=== PATIENT | female | born 1955 | race Caucasian/White ===

== ENCOUNTER 2016-11-22 16:45 | Inpatient (IN) | payer MEDICARE ==
[2016-11-22 19:49] LABS: Hematocrit 27 % (35-47); Hemoglobin 8.7 g/dl (12.0-16.0); Mean Corpuscular HGB Conc 33 g/dl (31-36); Mean Corpuscular Hemoglobin 26 pg (27-31); Mean Corpuscular Volume 79 fL (80-97); Mean Platelet Volume 7 um3 (7.4-10.4); Red Blood Count 3.39 10^6/ul (4.0-5.4); Red Cell Distribution Width 18 % (10.5-15); White Blood Count 6.2 10^3/ul (3.5-10.8)
[2016-11-22 20:04] LABS: Albumin 3.4 g/dL (3.2-5.2); Calcium 8.8 mg/dL (8.6-10.3); EGFR African American 161.9 (>60); EGFR Non-African American 125.9 (>60); Potassium 4.6 mmol/L (3.5-5.0); Total Bilirubin 0.4 mg/dL (0.2-1.0); Total Protein 7.4 g/dL (6.4-8.9)
[2016-11-22] MEDS ORDERED: Acetaminophen TAB* 325 MG PO PRN (21:05)
[2016-11-22] MEDS ORDERED: Sodium Chloride 3% HYPERTONIC* 500 ML IVPB ONE (21:07)
[2016-11-22] MEDS ORDERED: HYDROcodone/ACETAMIN 5-325 MG* 1 TAB PO PRN (21:30)
[2016-11-22] MEDS ORDERED: Bisacodyl EC TAB* 5 MG PO PRN (21:30)
[2016-11-22 22:09] LABS: TSH (Thyroid Stimulating Horm) 0.09 mcIU/mL (0.34-5.60)
--- NOTE | 2016-11-22 22:51 | ED ---
Pauline Jung Alok, scribed for Mesfin Shen MD on 11/22/16 at 1913 . Complex/Multi-Sys Presentation - HPI Summary HPI Summary: 61F sent here from [facility] with hyponatremia and open wound on left side of hip. Pt states he went to [facility] for a hip replacement when a blood blister the left side of her hip tore. Pt states she has had the blister for the past 5 months and has had them three times before. Pt states the doctor at [facility] was also concerned of a staff infection. Pt was told to come to the ED due to low sodium level of 115. - History Of Current Complaint Chief Complaint: EDGeneral Time Seen by Provider: 11/22/16 18:06 Hx Obtained From: Patient Onset/Duration: Still Present Timing: Constant Severity Currently: Moderate Severity Initially: Moderate Location: Pain At: - left hip - Allergies/Home Medications Allergies/Adverse Reactions: Allergies Allergy/AdvReac Type Severity Reaction Status Date / Time Milk Protein Extract Allergy Severe Swelling Verified 07/01/15 11:47 [From Spiriva] Of Face,Lips,& Throat Sulfa Drugs Allergy Severe Hives Verified 07/01/15 11:47 Tiotropium [From Spiriva] Allergy Severe Swelling Verified 07/01/15 11:47 Of Face,Lips,& Throat Ciprofloxacin Allergy Intermediate Rash And Verified 07/01/15 11:47 Itching Iodinated Contrast Media Allergy Mild Rash And Verified 07/01/15 11:47 [IV CONTRAST DYE] Itching Ipratropium Allergy Swelling Verified 07/01/15 11:47 [From Atrovent Inhaler] Of Face,Lips,& Throat Lecithin Allergy Swelling Verified 07/01/15 11:47 [From Atrovent Inhaler] Of Face,Lips,& Throat Cat dander Allergy Intermediate Eyes Uncoded 07/01/15 11:47 Itchy/Swollen/Red/Watery nicotine patch Allergy Intermediate Rash Uncoded 07/01/15 11:47 Pollen Allergy Intermediate Eyes Uncoded 07/01/15 11:47 Itchy/Swollen/Red/Watery PMH/Surg Hx/FS Hx/Imm Hx Endocrine/Hematology History: Reports: Hx Thyroid Disease Denies: Hx Diabetes Cardiovascular History: Reports: Hx Hypertension Denies: Hx Congestive Heart Failure, Hx Pacemaker/ICD Respiratory History: Reports: Hx Asthma, Hx Chronic Obstructive Pulmonary Disease (COPD), Hx Seasonal Allergies, Other Respiratory Problems/Disorders - COPD GI History: Reports: Hx Diverticulosis, Hx Gastroesophageal Reflux Disease, Hx Hiatal Hernia Denies: Hx Ulcer History: Denies: Hx Renal Disease Musculoskeletal History: Reports: Hx Back Problems, Hx Scoliosis, Other Musculoskeletal History - rt wrist, ankle, left femur Denies: Hx Osteoporosis Sensory History: Reports: Hx Contacts or Glasses Denies: Hx Hearing Aid Opthamlomology History: Reports: Hx Contacts or Glasses Neurological History: Reports: Hx Headaches, Other Neuro Impairments/Disorders - states neuropathy Denies: Hx Dementia, Hx Seizures Psychiatric History: Denies: Hx Panic Disorder - Surgical History Surgery Procedure, Year, and Place: Tonsillectomy adenoidectomy, right ankle fracture repair x 2, tubal ligation, diverticulitis colostomy and removal 2009, benign abdominal tumor, appendectomy,left femoral chelle 09/25 Hx Anesthesia Reactions: No Infectious Disease History: No Infectious Disease History: Denies: Hx Hepatitis, Hx Human Immunodeficiency Virus (HIV), Traveled Outside the [place] in Last 30 Days - Family History Known Family History: Negative: Cardiac Disease, Hypertension, Diabetes - Social History Alcohol Use: Rare Substance Use Type: Reports: None Smoking Status (MU): Current Every Day Smoker Type: Cigarettes Amount Used/How Often: 10 cigarettes a day Length of Time of Smoking/Using Tobacco: 40 years Have You Smoked in the Last Year: Yes Review of Systems Negative: Fever Positive: Other - hyponatremia Positive: Other - open wound left hip All Other Systems Reviewed And Are Negative: Yes Physical Exam Triage Information Reviewed: Yes Vital Signs On Initial Exam: Initial Vitals Temp Pulse Resp BP Pulse Ox 97.7 F 81 16 127/56 100 11/22/16 16:49 11/22/16 16:49 11/22/16 16:49 11/22/16 16:49 11/22/16 16:49 Vital Signs Reviewed: Yes Appearance: Positive: Well-Appearing, No Pain Distress Skin: Positive: Other - open wound leaking purulent material. no foul smell. Head/Face: Positive: Normal Head/Face Inspection Eyes: Positive: Normal ENT: Positive: Normal ENT inspection Neck: Positive: Supple, Nontender Respiratory/Lung Sounds: Positive: Clear to Auscultation, Breath Sounds Present Cardiovascular: Positive: RRR Abdomen Description: Positive: Nontender, Soft Bowel Sounds: Positive: Present Musculoskeletal: Positive: Normal Neurological: Positive: Normal Psychiatric: Positive: Normal, Affect/Mood Appropriate Procedures - Central Line Central Line Lumen: triple Central Line Procedure: betadine prep, sterile drapes applied, sterile dressing applied Central Line Position: femoral (R) - U/S guided/ first pass Anesthesia: Lidocaine cc's of anesthesia: 3 Complications: none Central Line Post Position: sutured, good blood return Diagnostics - Vital Signs Vital Signs Temp Pulse Resp BP Pulse Ox 11/22/16 16:49 97.7 F 75 16 127/56 98 - Laboratory Lab Results: Lab Results 11/22/16 11/22/16 Range/Units 19:40 19:40 WBC 6.2 (3.5-10.8) 10^3/ul RBC 3.39 L (4.0-5.4) 10^6/ul Hgb 8.7 L (12.0-16.0) g/dl Hct 27 L (35-47) % MCV 79 L (80-97) fL MCH 26 L (27-31) pg MCHC 33 (31-36) g/dl RDW 18 H (10.5-15) % Plt Count 328 (150-450) 10^3/ul MPV 7 L (7.4-10.4) um3 Neut % (Auto) 66.3 (38-83) % Lymph % (Auto) 19.4 L (25-47) % [place] % (Auto) 11.2 H (1-9) % Eos % (Auto) 1.8 (0-6) % Baso % (Auto) 1.3 (0-2) % Absolute Neuts (auto) 4.1 (1.5-7.7) 10^3/ul Absolute Lymphs (auto) 1.2 (1.0-4.8) 10^3/ul Absolute Monos (auto) 0.7 (0-0.8) 10^3/ul Absolute Eos (auto) 0.1 (0-0.6) 10^3/ul Absolute Basos (auto) 0.1 (0-0.2) 10^3/ul Absolute Nucleated RBC 0 10^3/ul Nucleated RBC % 0 Sodium 110 L* (133-145) mmol/L Potassium 4.6 (3.5-5.0) mmol/L Chloride 80 L (101-111) mmol/L Carbon Dioxide 22 (22-32) mmol/L Anion Gap 8 (2-11) mmol/L BUN 7 (6-24) mg/dL Creatinine 0.50 L (0.51-0.95) mg/dL Est GFR ( Amer) 161.9 (>60) Est GFR (Non-Af Amer) 125.9 (>60) BUN/Creatinine Ratio 14.0 (8-20) Glucose 87 (70-100) mg/dL Calcium 8.8 (8.6-10.3) mg/dL Total Bilirubin 0.40 (0.2-1.0) mg/dL AST 18 (13-39) U/L ALT 8 (7-52) U/L Alkaline Phosphatase 100 (34-104) U/L C-Reactive Protein 31.00 H (< 5.00) mg/L Total Protein 7.4 (6.4-8.9) g/dL Albumin 3.4 (3.2-5.2) g/dL Globulin 4.0 (2-4) g/dL Albumin/Globulin Ratio 0.9 L (1-3) TSH 0.09 L (0.34-5.60) mcIU/mL Result Diagrams: 11/22/16 19:40 11/22/16 19:40 Lab Statement: Any lab studies that have been ordered have been reviewed, and results considered in the medical decision making process. - EKG 1658 Cardiac Rate: NL - 77 bpm EKG Rhythm: Sinus Rhythm EKG Interpretation: low voltage Complex Multi-Symp Course/Dx Course Of Treatment: Ms. Gatica presented after having been called by [facility] and told to come in for hyponatremia. She was found to have a sodium of [address] Peters saw her and recommended a central line for hypernatremic solution administration. - Diagnoses Provider Diagnoses: Acute hyponatremia - Physician Notifications Discussed Care Of Patient With: Dr. Peters (Hospitalist) @ 2049 - Will admit pt - Critical Care Time Critical Care Time: 30-74 min Discharge - Discharge Plan Condition: Stable Disposition: ADMITTED TO [facility] documentation as recorded by the Pauline pineda Alok accurately reflects the service I personally performed and the decisions made by me, Mesfin Shen MD.
[2016-11-22] MEDS: Albuterol 2.5 MG/3 ML NEB.SOL* (0.083%) INH PRN (23:06)
--- NOTE | 2016-11-23 | HP ---
HISTORY AND PHYSICAL: DATE OF ADMISSION: 11/22/16 CHIEF COMPLAINT: "My labs are off." HISTORY OF PRESENT ILLNESS: The patient is a 61-year-old woman who apparently had labs drawn at [facility] for surgery she is supposed to have next week and was told to come to the ER immediately because her sodium was low. She was told it was 115. Here when it is drawn, it is 110. The patient has had a history of low sodium in the past, but usually around 125. The patient has no complaints. She denies any headaches or lightheadedness. No seizure-like activity. She says she is compliant with all her medications including her Synthroid. She says she does drink about 1.5 L of water a day, but that is it. She does not drink alcohol much anymore. She admits she used to abuse alcohol , but that has been for years. PAST MEDICAL HISTORY: Significant for hypothyroidism, COPD, GERD, depression, chronic osteomyelitis. 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 MEDICATIONS: Her current medications are as follows: 1. Albuterol inhaler 2 puffs every 4 hours as needed. 2. Albuterol nebulizer every 4 hours as needed. 3. Lactulose 15 cc 4 times a day. 4. [place] 5/325 every 6 hours as needed. 5. Fluticasone 1 spray nasal daily. 6. Bisacodyl 5 mg daily as needed. 7. Levothyroxine 125 mcg daily. 8. Lansoprazole 30 mg daily. 9. Bupropion 150 mg daily. 10. Singulair 10 mg daily. 11. Dulera 100/5 two puffs twice daily. 12. Lisinopril 10 mg daily. ALLERGIES: She has allergies/adverse reactions to the following medications: MILK, SULFA DRUGS, SPIRIVA, CIPRO, IV CONTRASTS, IPRATROPIUM, LECITHIN, CAT DANDER, NICOTINE PATCH, and POLLEN. FAMILY HISTORY: Mother at age 60 of lung cancer. Father in the 70s of emphysema. SOCIAL HISTORY: Smokes 5 cigarettes a week, used to smoke 2 packs a day for 40 years. Rare alcohol, used to alcohol abuse years ago. No recreational drug use. She is on disability for her back. She is . Estranged from her daughter. She has 2 children. Her son, Fidel Gatica, is her healthcare proxy. REVIEW OF SYSTEMS: A 14-point review of systems was completed with the patient , all pertinent positive and negatives are in the history of present illness, otherwise it is negative. PHYSICAL EXAMINATION GENERAL: Pleasant woman, lying in bed, in no acute distress. VITAL SIGNS: Temperature 98 degrees, heart rate 80 beats per minute, respiratory rate 18 breaths per minute, pulse ox 97%, blood pressure 127/55. HEENT: Normocephalic, atraumatic. Pupils equal, round, reactive to light. Moist mucous membranes. NECK: Supple. No JVD, bruits, palpable thyroid, or lymphadenopathy. LUNGS: Chest is clear to auscultation and percussion bilaterally. CARDIOVASCULAR: S1 and S2 appreciated. ABDOMEN: Positive bowel sounds in all 4 quadrants. Soft, nontender, nondistended. EXTREMITIES: No cyanosis or clubbing. +2 peripheral pulses bilaterally. NEUROLOGIC: Alert and oriented x3, moves all extremities. SKIN: No rashes or abnormalities. LABORATORY DATA: Sodium is 110, potassium 4.6, chloride 80, CO2 22, BUN 7, creatinine 0.50, glucose is 87. WBC 6.2, hemoglobin 8.7, hematocrit 27, platelets are 328. EKG shows normal sinus rhythm at 77 beats per minute, normal axis, no acute ST- T wave changes. ASSESSMENT AND PLAN: 1. Severe hyponatremia. At this point, it is unclear as to the etiology. I will check a TSH for hypothyroidism, but she seems to also be euvolemic. I do not think it is from ascites from her past alcohol abuse. 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 I will fluid restrict her to 500 cc and because she is so severely hyponatremic, I will put her on 30 cc an hour of hypertonic saline until I can get her sodium up to over 120. Obviously, I will do slowly. I will put her in the ICU for observation with neurological checks q.4 hours. There is also a possibility that hyponatremia could be from lactulose from the lactulose and we will consider this as a potential cause. 2. Hypothyroidism. As above. Check TSH. Continue Synthroid. 3. Gastroesophageal reflux disease, stable, no symptoms, continue PPI. 4. Chronic obstructive pulmonary disease, stable. Continue current treatment. 5. Osteomyelitis. The patient is supposed to go in to have her hip replacement next week at [facility] with IV antibiotics over 6 weeks. We will monitor, but no treatment due for now. 6. FEN: Regular diet with 500 cc fluid restriction. 7. DVT prophylaxis. Heparin subcu. 8. The patient is a full code. TIME SPENT: Over 75 minutes were spent on this H and P, more than 40 minutes of which was spent in direct [id number] contact with the patient in evaluation , physical exam, counseling, and coordination of care. CC: Dr. Micah Sue* [id number]/CPS #: [id number] SHAY
[2016-11-23] MEDS: Heparin VIAL(*) 5000 UNITS/ML VIAL (FIVE THOUSAND) SUBCUT SCH ×4 (01:00→23:08)
[2016-11-23 01:53] LABS: BUN/Creatinine Ratio 15.8 (8-20); Calcium 8.1 mg/dL (8.6-10.3); EGFR African American 139.1 (>60); EGFR Non-African American 108.2 (>60); Potassium 4.4 mmol/L (3.5-5.0)
[2016-11-23] MEDS ORDERED: Sodium Chloride 3% HYPERTONIC* 500 ML IVPB ONE (02:28)
[2016-11-23] MEDS: Albuterol 2.5 MG/3 ML NEB.SOL* (0.083%) INH PRN (05:18)
[2016-11-23] MEDS: Levothyroxine TAB* 125 MCG TAB PO SCH (05:37)
[2016-11-23 06:05] LABS: BUN/Creatinine Ratio 16.3 (8-20); Calcium 8.5 mg/dL (8.6-10.3); EGFR African American 165.7 (>60); EGFR Non-African American 128.8 (>60); Potassium 4.4 mmol/L (3.5-5.0)
--- NOTE | 2016-11-23 08:19 | PN ---
Subjective Date of Service: 11/23/16 Interval History: Has no systemic complains Upset that she is in the hospital. Upset that she keeps getting woken up Denies BAKER, visual changes, nausea, SOB, CP, LH Objective Active Medications: Acetaminophen (Tylenol Tab*) 650 mg PO Q4H PRN PRN Reason: FEVER/PAIN Hydrocodone Bitart/Acetaminophen ([place] 5-325 Tab*) 1 tab PO Q6H PRN PRN Reason: PAIN Albuterol (Ventolin 2.5 Mg/3 Ml Neb.Carlita*) 2.5 mg INH Q4H PRN PRN Reason: WHEEZING Last Admin: 11/23/16 05:18 Dose: 2.5 mg Albuterol (Ventolin Hfa Inhaler*) 2 puff INH Q4H PRN PRN Reason: WHEEZING Bisacodyl (Dulcolax Ec Tab*) 5 mg PO DAILY PRN PRN Reason: CONSTIPATION Bupropion HCl (Wellbutrin Sr Tab*) 150 mg PO DAILY [facility] Fluticasone Propionate (Flonase Nasal [place] 50mcg*) 1 spray NASAL DAILY [facility] Heparin Sodium (Porcine) (Heparin Vial(*)) 5,000 units SUBCUT Q8HR [facility] Last Admin: 11/23/16 06:47 Dose: 5,000 units Levothyroxine Sodium (Synthroid Tab*) 125 mcg PO DAILY@0600 [facility] Last Admin: 11/23/16 05:37 Dose: 125 mcg Lisinopril (Prinivil Tab*) 10 mg PO DAILY [facility] Mometasone Furoate/Formoterol Fumar (Dulera 100/5 Mdi*) 2 puff INH BID [facility] Montelukast Sodium (Singulair Tab*) 10 mg PO BEDTIME [facility] Omeprazole (Prilosec Cap*) 20 mg PO DAILY@0730 [facility] PRN Reason: Protocol Vital Signs 11/22/16 11/22/16 11/22/16 22:24 22:25 22:30 Temperature Pulse Rate 95 94 Respiratory Rate Blood Pressure 69/50 128/65 (mmHg) O2 Sat by Pulse 93 94 Oximetry 11/22/16 11/22/16 11/22/16 22:33 22:49 22:50 Temperature 98.2 F Pulse Rate 91 99 Respiratory 20 Rate Blood Pressure 144/59 144/59 (mmHg) O2 Sat by Pulse 93 93 Oximetry 11/22/16 11/22/16 11/22/16 23:00 23:07 23:15 Temperature Pulse Rate 85 85 Respiratory 23 15 21 Rate Blood Pressure 123/90 (mmHg) O2 Sat by Pulse 98 100 Oximetry 11/22/16 11/23/16 11/23/16 23:22 00:00 00:01 Temperature 99.4 F Pulse Rate 93 88 87 Respiratory 20 20 19 Rate Blood Pressure 138/67 (mmHg) O2 Sat by Pulse 95 93 94 Oximetry 11/23/16 11/23/16 11/23/16 01:00 02:00 03:00 Temperature Pulse Rate 86 83 85 Respiratory 24 21 20 Rate Blood Pressure 139/95 145/73 132/59 (mmHg) O2 Sat by Pulse 92 94 92 Oximetry 11/23/16 11/23/16 11/23/16 04:00 04:02 05:00 Temperature 97.6 F Pulse Rate 85 Respiratory 25 21 21 Rate Blood Pressure 167/72 (mmHg) O2 Sat by Pulse 92 Oximetry 11/23/16 11/23/16 11/23/16 05:19 06:00 06:03 Temperature Pulse Rate 86 Respiratory 16 21 21 Rate Blood Pressure 153/56 (mmHg) O2 Sat by Pulse 95 Oximetry 11/23/16 07:59 Temperature 98.4 F Pulse Rate Respiratory Rate Blood Pressure (mmHg) O2 Sat by Pulse Oximetry Oxygen Devices in Use Now: Nasal Cannula Appearance: lying 35 deg in bed, NAD Eyes: No Scleral Icterus, PERRLA Ears/Nose/Mouth/Throat: Clear Oropharnyx, Mucous Membranes Moist Neck: NL Appearance and Movements; NL JVP, Trachea Midline Respiratory: Symmetrical Chest Expansion and Respiratory Effort, - - decreased throughout Cardiovascular: NL Sounds; No Murmurs; No JVD, RRR Abdominal: - - soft, ND, mild TTP, +bs, palpable hernia Extremities: No Edema Skin: - - 1mm draining wound on left hip Neurological: Alert and Oriented x 3 Lines/Tubes/Other Access: Clean, Dry and Intact Central Line - right femoral CVC Result Diagrams: 11/22/16 19:40 11/23/16 05:35 Additional Lab and Data: Lab Results 11/22/16 11/22/16 Range/Units 19:40 19:40 WBC 6.2 (3.5-10.8) 10^3/ul RBC 3.39 L (4.0-5.4) 10^6/ul Hgb 8.7 L (12.0-16.0) g/dl Hct 27 L (35-47) % MCV 79 L (80-97) fL MCH 26 L (27-31) pg MCHC 33 (31-36) g/dl RDW 18 H (10.5-15) % Plt Count 328 (150-450) 10^3/ul MPV 7 L (7.4-10.4) um3 Neut % (Auto) 66.3 (38-83) % Lymph % (Auto) 19.4 L (25-47) % [place] % (Auto) 11.2 H (1-9) % Eos % (Auto) 1.8 (0-6) % Baso % (Auto) 1.3 (0-2) % Absolute Neuts (auto) 4.1 (1.5-7.7) 10^3/ul Absolute Lymphs (auto) 1.2 (1.0-4.8) 10^3/ul Absolute Monos (auto) 0.7 (0-0.8) 10^3/ul Absolute Eos (auto) 0.1 (0-0.6) 10^3/ul Absolute Basos (auto) 0.1 (0-0.2) 10^3/ul Absolute Nucleated RBC 0 10^3/ul Nucleated RBC % 0 Sodium 110 L* (133-145) mmol/L Potassium 4.6 (3.5-5.0) mmol/L Chloride 80 L (101-111) mmol/L Carbon Dioxide 22 (22-32) mmol/L Anion Gap 8 (2-11) mmol/L BUN 7 (6-24) mg/dL Creatinine 0.50 L (0.51-0.95) mg/dL Est GFR ( Amer) 161.9 (>60) Est GFR (Non-Af Amer) 125.9 (>60) BUN/Creatinine Ratio 14.0 (8-20) Glucose 87 (70-100) mg/dL Calcium 8.8 (8.6-10.3) mg/dL Total Bilirubin 0.40 (0.2-1.0) mg/dL AST 18 (13-39) U/L ALT 8 (7-52) U/L Alkaline Phosphatase 100 (34-104) U/L C-Reactive Protein 31.00 H (< 5.00) mg/L Total Protein 7.4 (6.4-8.9) g/dL Albumin 3.4 (3.2-5.2) g/dL Globulin 4.0 (2-4) g/dL Albumin/Globulin Ratio 0.9 L (1-3) TSH 0.09 L (0.34-5.60) mcIU/mL Assess/Plan/Problems-Billing Assessment: 61 yo F h/o COPD, hyponatremia, depression, chronic osteomyelitis with plan for left hip replacement and hardware removal next week at [facility] presented with sodium of 110 discovered during preadmission testing for hip surgery - Patient Problems (1) Hyponatremia Comment: Hypertonic saline stopped at 530 AM repeat BMP now and then again based on this result Unclear etiology. TSH suggests hyperthyroidism Pt reports adequate diet including solutes and free water but she may be underreporting consumption of food (tea and toast diet). SIADH definite possibility in setting of chronic osteo. Anemia and tobacco history raise question of underlying malignancy (2) Hyperthyroidism Comment: TSH low free T4 and free T3 pending continue current synthroid until results return (3) COPD (chronic obstructive pulmonary disease) Comment: On home oxygen c/w singulair, dulera, albuterol, flonase (4) Osteomyelitis Comment: chronic planned for surgery next week at [facility] if cleared here (5) Anemia Comment: suspectr in setting of chronic dz add on iron studies (6) DVT prophylaxis Comment: HSQ
[2016-11-23 08:20] LABS: Free T4 1.48 ng/dL (0.61-1.12)
[2016-11-23 08:26] LABS: BUN/Creatinine Ratio 15.4 (8-20); Calcium 8.9 mg/dL (8.6-10.3); EGFR African American 154.7 (>60); EGFR Non-African American 120.3 (>60); Potassium 4.3 mmol/L (3.5-5.0)
[2016-11-23] MEDS ORDERED: Budesonide/Formote 160/4.5(NF) MDI INH SCH (09:00)
[2016-11-23] MEDS: D5W 250 ML BAG* 250 ML IV SCH (09:09)
[2016-11-23] MEDS: Omeprazole CAP* 20 MG PO SCH (09:13)
[2016-11-23] MEDS: Mometasone/Formoter 100/5 MDI INH SCH ×2 (09:14→20:26)
[2016-11-23] MEDS: buPROPion SR TAB.SR* 150 MG PO SCH (09:14)
[2016-11-23] MEDS: Lisinopril TAB* 10 MG PO SCH (09:14)
[2016-11-23] MEDS: Fluticasone NASAL SPRAY 50MCG* 16 gm SPRAY BTL NASAL SCH (09:14)
[2016-11-23 09:21] LABS: Ferritin 21.8 ng/mL (11-307)
[2016-11-23 12:23] LABS: Calcium 8.9 mg/dL (8.6-10.3); EGFR African American 148.1 (>60); EGFR Non-African American 115.2 (>60); Potassium 4.4 mmol/L (3.5-5.0)
[2016-11-23] MEDS: Albuterol HFA INHALER* 8 gm MDI INH PRN ×2 (13:35→17:46)
[2016-11-23 18:40] LABS: BUN/Creatinine Ratio 12.2 (8-20); Calcium 8.6 mg/dL (8.6-10.3); EGFR African American 165.7 (>60); EGFR Non-African American 128.8 (>60); Potassium 4.4 mmol/L (3.5-5.0)
[2016-11-23] MEDS: oxyCODONE/Acetamin 5/325 MG* TAB PO PRN (18:40)
[2016-11-23] MEDS: Montelukast Sodium TAB* 10 MG PO SCH (20:25)
[2016-11-24] MEDS: tiZANidine TAB* 2 MG PO SCH ×4 (00:58→20:31)
[2016-11-24] MEDS: oxyCODONE/Acetamin 5/325 MG* TAB PO PRN ×5 (01:02→22:36)
[2016-11-24] MEDS: Albuterol HFA INHALER* 8 gm MDI INH PRN ×4 (01:02→20:17)
[2016-11-24] MEDS: Levothyroxine TAB* 125 MCG TAB PO SCH (05:20)
[2016-11-24] MEDS: Heparin VIAL(*) 5000 UNITS/ML VIAL (FIVE THOUSAND) SUBCUT SCH ×3 (05:21→22:36)
[2016-11-24 05:35] LABS: Hematocrit 26 % (35-47); Hemoglobin 8.3 g/dl (12.0-16.0); Mean Corpuscular HGB Conc 32 g/dl (31-36); Mean Corpuscular Hemoglobin 26 pg (27-31); Mean Corpuscular Volume 79 fL (80-97); Mean Platelet Volume 7 um3 (7.4-10.4); Red Blood Count 3.26 10^6/ul (4.0-5.4); Red Cell Distribution Width 18 % (10.5-15); White Blood Count 5.5 10^3/ul (3.5-10.8)
[2016-11-24 05:45] LABS: BUN/Creatinine Ratio 14.6 (8-20); Calcium 8.8 mg/dL (8.6-10.3); EGFR African American 169.7 (>60); EGFR Non-African American 131.9 (>60); Potassium 4.3 mmol/L (3.5-5.0)
[2016-11-24] MEDS: Omeprazole CAP* 20 MG PO SCH (08:09)
[2016-11-24] MEDS: Lisinopril TAB* 10 MG PO SCH (08:09)
[2016-11-24] MEDS: buPROPion SR TAB.SR* 150 MG PO SCH (08:09)
[2016-11-24] MEDS: Fluticasone NASAL SPRAY 50MCG* 16 gm SPRAY BTL NASAL SCH (08:10)
[2016-11-24] MEDS: Mometasone/Formoter 100/5 MDI INH SCH ×2 (08:10→20:08)
--- NOTE | 2016-11-24 13:19 | PN ---
Subjective Date of Service: 11/24/16 Interval History: Poor sleep overnight. Left hip draining "like it always does" No other complaints She thinks that she usually drinks more liquid than the 1000cc she received yesterday Objective Active Medications: Acetaminophen (Tylenol Tab*) 650 mg PO Q4H PRN PRN Reason: FEVER/PAIN Albuterol (Ventolin Hfa Inhaler*) 2 puff INH Q4H PRN PRN Reason: WHEEZING Last Admin: 11/24/16 10:08 Dose: 2 puff Bisacodyl (Dulcolax Ec Tab*) 5 mg PO DAILY PRN PRN Reason: CONSTIPATION Bupropion HCl (Wellbutrin Sr Tab*) 150 mg PO DAILY [facility] Last Admin: 11/24/16 08:09 Dose: 150 mg Fluticasone Propionate (Flonase Nasal [place] 50mcg*) 1 spray NASAL DAILY [facility] Last Admin: 11/24/16 08:10 Dose: 1 spray Heparin Sodium (Porcine) (Heparin Vial(*)) 5,000 units SUBCUT Q8HR [facility] Last Admin: 11/24/16 13:07 Dose: 5,000 units Heparin Sodium (Porcine) (Heparin Flush Picc/Ml/Cvc(*)) 0 ml IV FLUSH 0600, 1800 [facility] PRN Reason: Protocol Dextrose (D5w 250 Ml Bag*) 250 mls @ 0 mls/hr IV WIDE OPEN TJ PRN Reason: Wide Open Last Admin: 11/23/16 09:09 Dose: 250 mls/hr Levothyroxine Sodium (Synthroid Tab*) 75 mcg PO DAILY@0600 TJ Lisinopril (Prinivil Tab*) 10 mg PO DAILY [facility] Last Admin: 11/24/16 08:09 Dose: 10 mg Mometasone Furoate/Formoterol Fumar (Dulera 100/5 Mdi*) 2 puff INH BID [facility] Last Admin: 11/24/16 08:10 Dose: 2 puff Montelukast Sodium (Singulair Tab*) 10 mg PO BEDTIME [facility] Last Admin: 11/23/16 20:25 Dose: 10 mg Omeprazole (Prilosec Cap*) 20 mg PO DAILY@0730 [facility] PRN Reason: Protocol Last Admin: 11/24/16 08:09 Dose: 20 mg Oxycodone/Acetaminophen (Percocet 5/325 Tab*) 2 tab PO Q4H PRN PRN Reason: PAIN Last Admin: 11/24/16 13:05 Dose: 2 tab Tizanidine HCl (Zanaflex Tab*) 4 mg PO TID TJ Last Admin: 11/24/16 13:06 Dose: 4 mg Vital Signs 11/23/16 11/23/16 11/23/16 14:00 15:17 18:40 Temperature 97.7 F Pulse Rate 93 Respiratory 26 16 19 Rate Blood Pressure 149/36 (mmHg) O2 Sat by Pulse 95 96 Oximetry 11/23/16 11/23/16 11/23/16 19:19 20:00 20:26 Temperature 97.8 F Pulse Rate 90 86 Respiratory 16 18 16 Rate Blood Pressure 129/58 (mmHg) O2 Sat by Pulse 97 96 Oximetry 11/23/16 11/23/16 11/24/16 20:27 23:13 01:02 Temperature 98.2 F Pulse Rate 86 Respiratory 18 18 16 Rate Blood Pressure 131/60 (mmHg) O2 Sat by Pulse 98 Oximetry 11/24/16 11/24/16 11/24/16 03:02 04:23 05:20 Temperature 97.4 F Pulse Rate 79 Respiratory 16 16 16 Rate Blood Pressure 116/56 (mmHg) O2 Sat by Pulse 96 Oximetry 11/24/16 11/24/16 11/24/16 07:07 07:20 08:00 Temperature 97.7 F Pulse Rate 77 Respiratory 16 16 18 Rate Blood Pressure 124/53 (mmHg) O2 Sat by Pulse 96 Oximetry 11/24/16 11/24/16 10:25 13:05 Temperature Pulse Rate Respiratory 16 Rate Blood Pressure (mmHg) O2 Sat by Pulse 98 Oximetry Oxygen Devices in Use Now: Nasal Cannula Appearance: NAD Eyes: No Scleral Icterus, PERRLA Ears/Nose/Mouth/Throat: NL Teeth, Lips, Gums, Clear Oropharnyx, Mucous Membranes Moist Neck: NL Appearance and Movements; NL JVP, Trachea Midline Respiratory: Symmetrical Chest Expansion and Respiratory Effort, Clear to Auscultation Cardiovascular: RRR Abdominal: NL Sounds; No Tenderness; No Distention, No Hepatosplenomegaly Skin: - - small draining tract on left hip Neurological: Alert and Oriented x 3 Result Diagrams: 11/24/16 05:20 11/24/16 05:20 Additional Lab and Data: Lab Results 11/22/16 11/22/16 Range/Units 19:40 19:40 WBC 6.2 (3.5-10.8) 10^3/ul RBC 3.39 L (4.0-5.4) 10^6/ul Hgb 8.7 L (12.0-16.0) g/dl Hct 27 L (35-47) % MCV 79 L (80-97) fL MCH 26 L (27-31) pg MCHC 33 (31-36) g/dl RDW 18 H (10.5-15) % Plt Count 328 (150-450) 10^3/ul MPV 7 L (7.4-10.4) um3 Neut % (Auto) 66.3 (38-83) % Lymph % (Auto) 19.4 L (25-47) % [place] % (Auto) 11.2 H (1-9) % Eos % (Auto) 1.8 (0-6) % Baso % (Auto) 1.3 (0-2) % Absolute Neuts (auto) 4.1 (1.5-7.7) 10^3/ul Absolute Lymphs (auto) 1.2 (1.0-4.8) 10^3/ul Absolute Monos (auto) 0.7 (0-0.8) 10^3/ul Absolute Eos (auto) 0.1 (0-0.6) 10^3/ul Absolute Basos (auto) 0.1 (0-0.2) 10^3/ul Absolute Nucleated RBC 0 10^3/ul Nucleated RBC % 0 Sodium 110 L* (133-145) mmol/L Potassium 4.6 (3.5-5.0) mmol/L Chloride 80 L (101-111) mmol/L Carbon Dioxide 22 (22-32) mmol/L Anion Gap 8 (2-11) mmol/L BUN 7 (6-24) mg/dL Creatinine 0.50 L (0.51-0.95) mg/dL Est GFR ( Amer) 161.9 (>60) Est GFR (Non-Af Amer) 125.9 (>60) BUN/Creatinine Ratio 14.0 (8-20) Glucose 87 (70-100) mg/dL Calcium 8.8 (8.6-10.3) mg/dL Total Bilirubin 0.40 (0.2-1.0) mg/dL AST 18 (13-39) U/L ALT 8 (7-52) U/L Alkaline Phosphatase 100 (34-104) U/L C-Reactive Protein 31.00 H (< 5.00) mg/L Total Protein 7.4 (6.4-8.9) g/dL Albumin 3.4 (3.2-5.2) g/dL Globulin 4.0 (2-4) g/dL Albumin/Globulin Ratio 0.9 L (1-3) TSH 0.09 L (0.34-5.60) mcIU/mL Microbiology and Other Data: Microbiology 11/23/16 06:00 Nasal Screen MRSA (PCR)(DAWNA) - Final Nasal Mrsa Negative Assess/Plan/Problems-Billing Assessment: 61 yo F h/o COPD, hyponatremia, depression, chronic osteomyelitis with plan for left hip replacement and hardware removal next week at [facility] presented with sodium of 110 discovered during preadmission testing for hip surgery - Patient Problems (1) Hyponatremia Comment: Hypertonic saline stopped at 530 AM 11/23/16 Received free water to slow sodium rise yesterday Free water restrict to 1000cc today and reevaluate tomorrow Pt reports adequate diet including solutes and free water but she may be underreporting consumption of food (tea and toast diet). SIADH definite possibility in setting of chronic osteo. Anemia and tobacco history raise question of underlying malignancy (2) Hyperthyroidism Comment: Decrease synthroid from 125 to 75mch daily will need repeat in 4-6 weeks (3) COPD (chronic obstructive pulmonary disease) Comment: On home oxygen c/w singulair, dulera, albuterol, flonase (4) Osteomyelitis Comment: chronic planned for surgery next week at [facility] if cleared here (5) Anemia Comment: suspect in setting of chronic dz iron studies c/w iron def anemia Iron start BID (6) DVT prophylaxis Comment: HSQ
[2016-11-24] MEDS: Montelukast Sodium TAB* 10 MG PO SCH (20:32)
[2016-11-24] MEDS: Ferrous Sulfate TAB* 325 MG PO SCH (20:32)
[2016-11-25] MEDS: Albuterol HFA INHALER* 8 gm MDI INH PRN ×2 (02:08→05:58)
[2016-11-25] MEDS ORDERED: Nicotine Inhaler* 10 MG AMP INH PRN (03:04)
[2016-11-25] MEDS ORDERED: Mouth Piece, Nicotine* 1 EACH CARTRIDGE ONE (03:10)
[2016-11-25] MEDS ORDERED: Nicotine Inhaler* 10 MG AMP ONE (03:11)
[2016-11-25] MEDS: oxyCODONE/Acetamin 5/325 MG* TAB PO PRN ×3 (03:13→14:49)
[2016-11-25] MEDS: Heparin VIAL(*) 5000 UNITS/ML VIAL (FIVE THOUSAND) SUBCUT SCH ×2 (05:23→14:42)
[2016-11-25] MEDS ORDERED: Levothyroxine TAB* 75 MCG TAB PO SCH (06:00)
[2016-11-25 06:08] LABS: Calcium 8.5 mg/dL (8.6-10.3); EGFR African American 139.1 (>60); EGFR Non-African American 108.2 (>60); Potassium 4.1 mmol/L (3.5-5.0)
[2016-11-25] MEDS ORDERED: NS 0.9% 1000 ML* 1,000 ML IV ONE (07:30)
[2016-11-25] MEDS: buPROPion SR TAB.SR* 150 MG PO SCH (08:14)
[2016-11-25] MEDS: Lisinopril TAB* 10 MG PO SCH (08:14)
[2016-11-25] MEDS: Ferrous Sulfate TAB* 325 MG PO SCH (08:14)
[2016-11-25] MEDS: tiZANidine TAB* 2 MG PO SCH ×2 (08:14→14:49)
[2016-11-25] MEDS: Fluticasone NASAL SPRAY 50MCG* 16 gm SPRAY BTL NASAL SCH (08:15)
[2016-11-25] MEDS: Omeprazole CAP* 20 MG PO SCH (08:15)
[2016-11-25 08:16] VITALS: BP 113/51
[2016-11-25] MEDS: Mometasone/Formoter 100/5 MDI INH SCH (10:09)
[2016-11-25 12:29] LABS: BUN/Creatinine Ratio 12.1 (8-20); Calcium 8.2 mg/dL (8.6-10.3); EGFR African American 136.4 (>60); Potassium 4.1 mmol/L (3.5-5.0)
[2016-11-25] MEDS ORDERED: NS 0.9% 1000 ML* 500 ML IV SCH (14:00)
[2016-11-25] MEDS: D5W 250 ML BAG* 250 ML IV SCH (14:51)
--- NOTE | 2016-11-26 02:49 | DS ---
DISCHARGE SUMMARY: DATE OF ADMISSION: 11/22/16 DATE OF DISCHARGE: 11/25/16 PRIMARY CARE PROVIDER: Micah Sue MD PRIMARY DIAGNOSES: 1. Hyponatremia. 2. Hyperthyroidism. SECONDARY DIAGNOSES: 1. Chronic obstructive pulmonary disease. 2. Chronic osteomyelitis. 3. Anemia combination chronic secondary to inflammation and iron deficiency anemia. 4. Depression. 5. Hypertension. PERTINENT LABORATORY DATA: Sodium on presentation 110, sodium on discharge 124 , TSH 0.09, free T4 1.48, free T3 3.00. Serum osmolality 243, urine osmolality 98, urine sodium less than 18, iron 21, TIBC 357, percent saturation 6, ferritin 21. MEDICATIONS ON DISCHARGE: 1. Tizanidine 4 mg 3 times a day as needed 2. Lisinopril 20 mg daily. 3. Albuterol HFA 2 puffs inhaler every 4 hours as needed. 4. Albuterol nebulizer every 4 hours as needed. 5. Lactulose 15 mL 4 times a day. 6. Hydrocodone/acetaminophen 5/325 mg 1 tab every 6 hours as needed for pain. 7. Fluticasone 1 spray nasally daily. 8. Bisacodyl EC 5 mg daily as needed. 9. Prevacid 30 mg daily. 10. Bupropion SR 150 mg daily. 11. Montelukast 10 mg daily. 12. Dulera 100/5 two puffs twice daily. 13. Synthroid 75 mcg daily. Please note decrease from 125 mcg daily. 14. Ferrous sulfate 325 mg twice daily. HISTORY OF PRESENT ILLNESS AND HOSPITAL COURSE: This is a 61-year-old female with past medical history as outlined in the history of present illness on the day of admission including history of hyponatremia; however, never this severe, chronic osteomyelitis with plan for surgery 3 days from today at [facility], who has been in her usual state of health, had preadmission testings, referred to the emergency room after sodium returned at 115. Sodium on presentation here was 110. The patient was asymptomatic. She had right a femoral central line placed, was admitted to the ICU and received hypertonic saline overnight. Her sodium marizol rapidly from 110 to 122 in approximately 7-1/ 2 hours. She received small amount of free water until her sodium stabilized, returned to 123. She was maintained on a volume restricted diet and her sodium continued to decline at 1 mL per liter daily. Ultimately, her urine sodium and osmolality results returned more indicative of hypovolemic state. She was given a liter of normal saline on the day of discharge with improvement of her serum sodium from 121 to 124 indicating hypovolemic hyponatremia. She received additional 500 cc of fluid prior to her discharge. Her serum sodium or BMP should be followed upon discharge. Additionally, her TSH was noted to be low with an elevated free T4 indicating hyperthyroidism. Her levothyroxine was titrated down. Additionally, for her anemia, iron tests were checked, notable for a low iron, low percent sat, and a borderline low ferritin 21.8. It appears to this author that the ferritin is likely falsely elevated as acute phase reactant in the setting of her chronic osteomyelitis, also indicated by elevated CRP of 31 and suspects these labs truly represent iron deficiency anemia likely in conjunction with anemia of chronic illness. At followup, please; 1. Follow up sodium levels as needed. 2. The patient will need followup thyroid studies in 4 to 6 weeks. 3. The patient will need followup iron studies in several months to evaluate for improvement. Reasons to return to the hospital including, but not limited to recurrent or worsening symptoms including headaches, changes in vision, lightheadedness, loss of consciousness, near loss of consciousness, seizure-like activity, nausea , vomiting, fever, chills or night sweats, bleeding from any source discussed with the patient, she acknowledged understanding. She was advised to increase her fluid intake, which she does not describe as low during the course of the hospital stay. She acknowledged understanding. TIME SPENT: Greater than 60 minutes were spent on discharge of this patient, greater than half was spent [id number] with the patient. [id number]/[facility] #: [id number] [place]
== END 2016-11-25 16:10 | disposition home or self-care (01) | DRG 641 ==
LOC: ED 16:45 → ICU 21:07 → MED 11-23 15:11
PROVIDERS: ADMIT Internal Medicine; ATTEND Internal Medicine
PROC: 06HM33Z Insertion of Infusion Device into Right Femoral Vein, Percutaneous Approach (ICD-10-PCS; principal; 2016-11-22)
PROC: B54BZZA Ultrasonography of Right Lower Extremity Veins, Guidance (ICD-10-PCS; 2016-11-22)
DX: E87.1 Hypo-osmolality and hyponatremia (principal); E86.1 Hypovolemia; M86.60 Other chronic osteomyelitis, unspecified site; M86.68 Other chronic osteomyelitis, other site; M41.9 Scoliosis, unspecified; G62.9 Polyneuropathy, unspecified; J45.909 Unspecified asthma, uncomplicated; F17.210 Nicotine dependence, cigarettes, uncomplicated; K21.9 Gastro-esophageal reflux disease without esophagitis; F32.9 Major depressive disorder, single episode, unspecified; E05.90 Thyrotoxicosis, unspecified without thyrotoxic crisis or storm; D50.9 Iron deficiency anemia, unspecified; D53.9 Nutritional anemia, unspecified; I10 Essential (primary) hypertension; D63.8 Anemia in other chronic diseases classified elsewhere; Z96.649 Presence of unspecified artificial hip joint; Z99.81 Dependence on supplemental oxygen; Z88.2 Allergy status to sulfonamides; Z88.1 Allergy status to other antibiotic agents; Z88.8 Allergy status to other drugs, medicaments and biological substances; Z91.041 Radiographic dye allergy status; Z91.048 Other nonmedicinal substance allergy status; Z91.011 Allergy to milk products; Z98.51 Tubal ligation status; Z80.1 Family history of malignant neoplasm of trachea, bronchus and lung; Z82.5 Family history of asthma and other chronic lower respiratory diseases
CPT/HCPCS: 36415; 80048; 80053; 82728; 83540; 83550; 83930; 83935; 84300; 84439; 84443; 84481; 85025; 86140; 87641; 93005; 94640; 94760; A9270-GY; J1644

== ENCOUNTER 2016-12-23 19:04 | Emergency (ER) | payer MEDICARE ==
[2016-12-23] MEDS ORDERED: NS 0.9% 1000 ML* 1,000 ML IV ONE (19:43)
[2016-12-23 20:14] LABS: Hematocrit 24 % (35-47); Hemoglobin 7.8 g/dl (12.0-16.0); Mean Corpuscular HGB Conc 32 g/dl (31-36); Mean Corpuscular Hemoglobin 28 pg (27-31); Mean Corpuscular Volume 86 fL (80-97); Mean Platelet Volume 8 um3 (7.4-10.4); Red Blood Count 2.82 10^6/ul (4.0-5.4); Red Cell Distribution Width 17 % (10.5-15); White Blood Count 7.3 10^3/ul (3.5-10.8)
[2016-12-23 20:32] LABS: ALT 3 U/L (7-52); AST 17 U/L (13-39); Albumin 2.9 g/dL (3.2-5.2); Alkaline Phosphatase 78 U/L (34-104); Anion Gap 8 mmol/L (2-11); BUN/Creatinine Ratio 12.5 (8-20); Blood Urea Nitrogen 6 mg/dL (6-24); C Reactive Protein 58.35 mg/L (< 5.00); CO2 Carbon Dioxide 24 mmol/L (22-32); Calcium 8.6 mg/dL (8.6-10.3); Chloride 96 mmol/L (101-111); Creatine Kinase 69 U/L (10-223); EGFR African American 169.7 (>60); EGFR Non-African American 131.9 (>60); Globulin 3.2 g/dL (2-4); Glucose 87 mg/dL (70-100); Lipase < 10 U/L (11.0-82.0); Magnesium 1.5 mg/dL (1.9-2.7); Potassium 3.6 mmol/L (3.5-5.0); Sodium 128 mmol/L (133-145); Total Protein 6.1 g/dL (6.4-8.9)
--- NOTE | 2016-12-23 21:51 | RAD ---
Indication: Post hardware removal LEFT hip secondary to infection. Bleeding from wound. Question abscess, hematoma, source of bleeding. Comparison: No relevant prior exams available on the [facility] for comparison. Technique: Multidetector CT pelvis without contrast. Multiplanar reformation with bone algorithm. Report: Comminuted avulsion fracture at the RIGHT greater trochanter involving the posterior facet appears acute or subacute. Negative for significant surrounding periosseous hematoma. LEFT hip hardware in place with probable antibiotic impregnated femoral head. Negative for fracture about the LEFT acetabulum. Nondisplaced nonacute fracture at the intratrochanteric to subtrochanteric region of the LEFT femur with peripheral callus formation. Extensive heterogeneous density fluid most suggestive of hematoma extends laterally from the LEFT hip to the level of the lateral cutaneous josué. Subcutaneous emphysema noted at the level of the LEFT tensor fascia [place]. Extensive subcutaneous edema of the LEFT thigh which measures substantially larger than the contralateral side at 16.4 cm AP by 17.3 cm transverse compared with 15.0 x 15.6 cm. Large partially visualized umbilical to infraumbilical small and large bowel containing hernia without associated inflammatory change or obstruction. Negative for ascites or free air within the [id number]. Moderately distended urinary bladder without suspicious finding. Negative for ureteral dilatation. Unremarkable atrophic uterus and adnexal regions. Negative for lymphadenopathy. Negative for retroperitoneal hematoma. IMPRESSION: 1. Extensive heterogeneous density fluid most suggestive of hematoma extends laterally from the LEFT hip to the level of the lateral cutaneous josué. Subcutaneous emphysema noted at the level of the LEFT tensor fascia [place]. Extensive subcutaneous edema of the LEFT thigh which measures substantially larger than the contralateral side at 16.4 cm AP by 17.3 cm transverse compared with 15.0 x 15.6 cm. No specific bleeding source identified. If there is clinical concern for abscess aspiration along the lateral incision site for microbiology assessment suggested. 2. If there is clinical concern for LEFT lower extremity DVT given magnitude of soft tissue swelling venous ultrasound would be suggested. 3. Comminuted avulsion fracture at the RIGHT greater trochanter involving the posterior facet appears acute or subacute. Negative for significant surrounding periosseous hematoma.
[2016-12-24 00:46] VITALS: BP 150/70
[2016-12-24 01:07] LABS: Urine Bacteria Absent (Absent); Urine Bilirubin Negative (Negative); Urine Glucose Negative (Negative); Urine Nitrite Negative (Negative)
--- NOTE | 2016-12-24 02:56 | ED ---
I, Bryant,Rosangela, scribed for Travis Newman MD on 12/23/16 at 2015 . Lower Extremity - HPI Summary HPI Summary: This 61 y/o female presents to ED from [facility] for acute drainage from LLE hip post-op wound since this morning. Positive LLE hip pain and dark red blood from the wound. Procedure done by Dr. Cohen per pt. Negative fever, chills. Pt reports positive n/v this morning, but pt states drinking chocolate milk as possible cause. PMHx includes THR s/p hardware removal at [facility] on 2016, MRSA, chronic abd hernia, diverticulitis s/p colostomy and removal in 2009 , chronic back pain, COPD, hypothyroid, and HTN. Pt is currently on Lovenox. Allergy to CT constrast is reviewed confirmed with pt. - History of Current Complaint Chief Complaint: EDBleedingDisorder Stated Complaint: LEFT HIP LAC Hx Obtained From: Patient, Medical Records Mechanism Of Injury: Unknown Onset/Duration: Hours Severity Initially: Moderate Severity Currently: Moderate Timing: Constant Location: Is Discrete @ - LLE Associated Signs And Symptoms: Positive: Other - drainage with dark red blood.. Negative: Fever Aggravating Factor(s): Nothing Alleviating Factor(s): Nothing - Allergies/Home Medications Allergies/Adverse Reactions: Allergies Allergy/AdvReac Type Severity Reaction Status Date / Time Milk Protein Extract Allergy Severe Swelling Verified 07/01/15 11:47 [From Spiriva] Of Face,Lips,& Throat Sulfa Drugs Allergy Severe Hives Verified 07/01/15 11:47 Tiotropium [From Spiriva] Allergy Severe Swelling Verified 07/01/15 11:47 Of Face,Lips,& Throat Ciprofloxacin Allergy Intermediate Rash And Verified 07/01/15 11:47 Itching Iodinated Contrast Media Allergy Mild Rash And Verified 07/01/15 11:47 [IV CONTRAST DYE] Itching Ipratropium Allergy Swelling Verified 07/01/15 11:47 [From Atrovent Inhaler] Of Face,Lips,& Throat Lecithin Allergy Swelling Verified 07/01/15 11:47 [From Atrovent Inhaler] Of Face,Lips,& Throat Cat dander Allergy Intermediate Eyes Uncoded 07/01/15 11:47 Itchy/Swollen/Red/Watery nicotine patch Allergy Intermediate Rash Uncoded 07/01/15 11:47 Pollen Allergy Intermediate Eyes Uncoded 07/01/15 11:47 Itchy/Swollen/Red/Watery PMH/Surg Hx/FS Hx/Imm Hx Endocrine/Hematology History: Reports: Hx Thyroid Disease Denies: Hx Diabetes Cardiovascular History: Reports: Hx Hypertension Denies: Hx Congestive Heart Failure, Hx Pacemaker/ICD Respiratory History: Reports: Hx Asthma, Hx Chronic Obstructive Pulmonary Disease (COPD), Hx Seasonal Allergies, Other Respiratory Problems/Disorders - COPD GI History: Reports: Hx Diverticulosis, Hx Gastroesophageal Reflux Disease, Hx Hiatal Hernia, Other GI Disorders - 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, partial colectomy 2013 Denies: Hx Ulcer History: Denies: Hx Renal Disease Musculoskeletal History: Reports: Hx Back Problems, Hx Scoliosis, Other Musculoskeletal History - rt wrist, ankle, left femur Denies: Hx Osteoporosis Sensory History: Reports: Hx Contacts or Glasses Denies: Hx Hearing Aid Opthamlomology History: Reports: Hx Contacts or Glasses Neurological History: Reports: Hx Headaches, Other Neuro Impairments/Disorders - states neuropathy Denies: Hx Dementia, Hx Seizures Psychiatric History: Denies: Hx Panic Disorder - Surgical History Surgery Procedure, Year, and Place: Tonsillectomy adenoidectomy, right ankle fracture repair x 2, tubal ligation, diverticulitis colostomy and removal 2009, benign abdominal tumor, appendectomy,left femoral chelle 09/25 Hx Anesthesia Reactions: No Infectious Disease History: Denies: Hx Hepatitis, Hx Human Immunodeficiency Virus (HIV), Traveled Outside the [place] in Last 30 Days - Family History Known Family History: Negative: Cardiac Disease, Hypertension, Diabetes - Social History Alcohol Use: Rare Substance Use Type: Reports: None Smoking Status (MU): Current Every Day Smoker Type: Cigarettes Amount Used/How Often: 10 cigarettes a day Length of Time of Smoking/Using Tobacco: 40 years Have You Smoked in the Last Year: Yes Review of Systems Negative: Fever, Chills, Skin Diaphoresis Positive: Vomiting, Nausea. Negative: Abdominal Pain Positive: Other - LLE pain Positive: Other - drainage from post op wound at LLE All Other Systems Reviewed And Are Negative: Yes Physical Exam - Summary Physical Exam Summary: The patient is well-nourished in no acute distress and in no acute pain. The skin is warm and dry and skin color reflects adequate perfusion. Positive incision at left hip, stapled, and bleeding wound in middle. HEENT: The head is normocephalic and atraumatic. The pupils are equal and reactive. The conjunctivae are clear and without drainage. Nares are patent and without drainage. Mouth reveals moist mucous membranes and the throat is without erythema and exudate. The external ears are intact. The ear canals are patent and without drainage. The tympanic membranes are intact. Neck is supple with full range of motion and non-tender. There are no carotid bruits. There is no neck vein distension. Respiratory: Chest is non-tender. Lungs are noted with diminished breath sound. Cardiovascular: Hear is regular rate and rhythm. There is no murmur or rub auscultated. There is no peripheral edema and pulses are symmetrical and equal. Good distal pulse BLE. Abdomen: The abdomen is soft and obese. Noted with chronic abd hernia that is not incarcerated. Musculoskeletal: There is no back pain noted. Extremities are non-tender with full range of motion. There is good capillary refill. Mild swelling at BLE. Negative tenderness Neurological: Patient is alert and oriented to person, place and time. The patient has symmetrical motor strength in all four extremities. Cranial nerves are grossly intact. Deep tendon reflexes are symmetrical and equal in all four extremities. Psychiatric: The patient has an appropriate affect and does not exhibit any anxiety or depression. Triage Information Reviewed: Yes Vital Signs On Initial Exam: Initial Vitals BP 107/56 12/23/16 20:32 Vital Signs Reviewed: Yes Diagnostics - Vital Signs Vital Signs Temp Pulse Resp BP Pulse Ox 12/24/16 00:30 91 150/70 92 12/24/16 00:27 99 92 12/24/16 00:24 162/77 12/23/16 22:45 85 94 12/23/16 22:27 97 92 12/23/16 20:35 98.8 F 78 16 107/56 93 12/23/16 20:33 80 95 12/23/16 20:32 107/56 - Laboratory Lab Results: Lab Results 12/23/16 12/23/16 12/23/16 Range/Units 20:00 20:00 20:00 WBC 7.3 (3.5-10.8) 10^3/ul RBC 2.82 L (4.0-5.4) 10^6/ul Hgb 7.8 L (12.0-16.0) g/dl Hct 24 L (35-47) % MCV 86 (80-97) fL MCH 28 (27-31) pg MCHC 32 (31-36) g/dl RDW 17 H (10.5-15) % Plt Count 444 (150-450) 10^3/ul MPV 8 (7.4-10.4) um3 Neut % (Auto) 63.2 (38-83) % Lymph % (Auto) 21.4 L (25-47) % [place] % (Auto) 11.4 H (1-9) % Eos % (Auto) 2.7 (0-6) % Baso % (Auto) 1.3 (0-2) % Absolute Neuts (auto) 4.6 (1.5-7.7) 10^3/ul Absolute Lymphs (auto) 1.6 (1.0-4.8) 10^3/ul Absolute Monos (auto) 0.8 (0-0.8) 10^3/ul Absolute Eos (auto) 0.2 (0-0.6) 10^3/ul Absolute Basos (auto) 0.1 (0-0.2) 10^3/ul Absolute Nucleated RBC 0 10^3/ul Nucleated RBC % 0 INR (Anticoag Therapy) (0.89-1.11) APTT (26.0-36.3) seconds Sodium 128 L (133-145) mmol/L Potassium 3.6 (3.5-5.0) mmol/L Chloride 96 L (101-111) mmol/L Carbon Dioxide 24 (22-32) mmol/L Anion Gap 8 (2-11) mmol/L BUN 6 (6-24) mg/dL Creatinine 0.48 L (0.51-0.95) mg/dL Est GFR ( Amer) 169.7 (>60) Est GFR (Non-Af Amer) 131.9 (>60) BUN/Creatinine Ratio 12.5 (8-20) Glucose 87 (70-100) mg/dL Lactic Acid 1.5 (0.5-2.0) mmol/L Calcium 8.6 (8.6-10.3) mg/dL Magnesium 1.5 L (1.9-2.7) mg/dL Total Bilirubin 0.30 (0.2-1.0) mg/dL AST 17 (13-39) U/L ALT 3 L (7-52) U/L Alkaline Phosphatase 78 (34-104) U/L Total Creatine Kinase 69 (10-223) U/L Troponin I 0.00 (<0.04) ng/mL C-Reactive Protein 58.35 H (< 5.00) mg/L Total Protein 6.1 L (6.4-8.9) g/dL Albumin 2.9 L (3.2-5.2) g/dL Globulin 3.2 (2-4) g/dL Albumin/Globulin Ratio 0.9 L (1-3) Lipase < 10 L (11.0-82.0) U/L Urine Color Urine Appearance Urine pH (5-9) Ur Specific [place] (1.010-1.030) Urine Protein (Negative) Urine Ketones (Negative) Urine Blood (Negative) Urine Nitrate (Negative) Urine Bilirubin (Negative) Urine Urobilinogen (Negative) Ur Leukocyte Esterase (Negative) Urine WBC (Auto) (Absent) Urine RBC (Auto) (Absent) Ur Squamous Epith Cells (Absent) Urine Bacteria (Absent) Urine Glucose (Negative) Blood Type Antibody Screen 12/23/16 12/23/16 12/24/16 Range/Units 20:00 20:00 00:45 WBC (3.5-10.8) 10^3/ul RBC (4.0-5.4) 10^6/ul Hgb (12.0-16.0) g/dl Hct (35-47) % MCV (80-97) fL MCH (27-31) pg MCHC (31-36) g/dl RDW (10.5-15) % Plt Count (150-450) 10^3/ul MPV (7.4-10.4) um3 Neut % (Auto) (38-83) % Lymph % (Auto) (25-47) % [place] % (Auto) (1-9) % Eos % (Auto) (0-6) % Baso % (Auto) (0-2) % Absolute Neuts (auto) (1.5-7.7) 10^3/ul Absolute Lymphs (auto) (1.0-4.8) 10^3/ul Absolute Monos (auto) (0-0.8) 10^3/ul Absolute Eos (auto) (0-0.6) 10^3/ul Absolute Basos (auto) (0-0.2) 10^3/ul Absolute Nucleated RBC 10^3/ul Nucleated RBC % INR (Anticoag Therapy) 0.94 (0.89-1.11) APTT 32.8 (26.0-36.3) seconds Sodium (133-145) mmol/L Potassium (3.5-5.0) mmol/L Chloride (101-111) mmol/L Carbon Dioxide (22-32) mmol/L Anion Gap (2-11) mmol/L BUN (6-24) mg/dL Creatinine (0.51-0.95) mg/dL Est GFR ( Amer) (>60) Est GFR (Non-Af Amer) (>60) BUN/Creatinine Ratio (8-20) Glucose (70-100) mg/dL Lactic Acid (0.5-2.0) mmol/L Calcium (8.6-10.3) mg/dL Magnesium (1.9-2.7) mg/dL Total Bilirubin (0.2-1.0) mg/dL AST (13-39) U/L ALT (7-52) U/L Alkaline Phosphatase (34-104) U/L Total Creatine Kinase (10-223) U/L Troponin I (<0.04) ng/mL C-Reactive Protein (< 5.00) mg/L Total Protein (6.4-8.9) g/dL Albumin (3.2-5.2) g/dL Globulin (2-4) g/dL Albumin/Globulin Ratio (1-3) Lipase (11.0-82.0) U/L Urine Color Straw Urine Appearance Clear Urine pH 6.0 (5-9) Ur Specific [place] 1.003 L (1.010-1.030) Urine Protein Negative (Negative) Urine Ketones Negative (Negative) Urine Blood 2+ H (Negative) Urine Nitrate Negative (Negative) Urine Bilirubin Negative (Negative) Urine Urobilinogen Negative (Negative) Ur Leukocyte Esterase Negative (Negative) Urine WBC (Auto) Absent (Absent) Urine RBC (Auto) Trace(0-2/hpf) (Absent) Ur Squamous Epith Cells Present H (Absent) Urine Bacteria Absent (Absent) Urine Glucose Negative (Negative) Blood Type A Positive Antibody Screen Negative Result Diagrams: 12/23/16 20:00 12/23/16 20:00 Lab Statement: Any lab studies that have been ordered have been reviewed, and results considered in the medical decision making process. - CT CT Pelvis CT Interpretation: Positive (See Comments) - 1. Extensive heterogeneous density fluid most suggestive of hematoma extends laterally from the LEFT hip to the level of the lateral cutaneous josué. Subcutaneous emphysema noted at the level of the LEFT tensor fascia [place]. Extensive subcutaneous edema of the LEFT thigh which measures substantially larger than the contralateral side at 16.4 cm AP by 17.3 cm transverse compared with 15.0 x 15.6 cm. No specific bleeding source identified. If there is clinical concern for abscess aspiration along the lateral incision site for microbiology assessment suggested. 2. If there is clinical concern for LEFT lower extremity DVT given magnitude of soft tissue swelling venous ultrasound would be suggested. 3. Comminuted avulsion fracture at the RIGHT greater trochanter involving the posterior facet appears acute or subacute. Negative for significant surrounding periosseous hematoma. CT Interpretation Completed By: Radiologist - EKG 1955 Cardiac Rate: NL EKG Rhythm: Sinus Rhythm ST Segment: Normal EKG Interpretation: Poor R-wave progression Re-Evaluation - Re-Evaluation First Eval Re-Evaluation Time: 22:27 Comment: Dr. Newman in room to discuss CT imaging results and bloodwork with pt. Hardcopy of bloodwork and CT results are provided to pt. Plan of care is discussed. Second Eval Re-Evaluation Time: 23:08 Comment: Dr. Newman shared the consultation and Dr. Cohen's recommendation for outpatient f/u. Pt is agreeable at this time. Lower Extremity Course/Dx - Course Assessment/Plan: This 61 y/o female presents to ED for draining wound on LLE hip since 1600 PM today. She reports less than a week hospital stay after her procedure. Pt is s/p hardware removal of her THR at [facility] on 12/12/2016. Upon examination, pt is noted with chronic abd hernia and surgical wound on LLE lateral hip at middle of stapled surgical incision. Good pulse and normal strength BLE. PICC line ordered. CT Pelvis is ordered and noted with 1. Extensive heterogeneous density fluid most suggestive of hematoma extends laterally from the LEFT hip to the level of the lateral cutaneous josué. Subcutaneous emphysema noted at the level of the LEFT tensor fascia [place]. Extensive subcutaneous edema of the LEFT thigh which measures substantially larger than the contralateral side at 16.4 cm AP by 17.3 cm transverse compared with 15.0 x 15.6 cm. No specific bleeding source identified. If there is clinical concern for abscess aspiration along the lateral incision site for microbiology assessment suggested. 2. If there is clinical concern for LEFT lower extremity DVT given magnitude of soft tissue swelling venous ultrasound would be suggested. 3. Comminuted avulsion fracture at the RIGHT greater trochanter involving the posterior facet appears acute or subacute. Negative for significant surrounding periosseous hematoma. [facility] is paged at 2229 PM. Call returned at [address] Cohen called at 2251 PM, and recommends bulky dressing. Pending outpatient f/u already scheduled 3 days later. - Diagnoses Differential Diagnosis/HQI/PQRI: Positive: Other - mrsa, incision infection, Provider Diagnoses: Postoperative bleeding from incision, Hematoma - Physician Notifications Time Discussed With Above Provider: 22:21 Discharge - Discharge Plan Condition: Stable Disposition: HOME Patient Education Materials: Hematoma (ED), Postoperative Bleeding (ED) Referrals: Micah Sue MD [Primary Care Provider] - 2 Days Additional Instructions: Please follow up with Dr. Cohen as planned on 12/25/2016 or , 12/27/2016. The documentation as recorded by the Bryant pineda Soohyun accurately reflects the service I personally performed and the decisions made by Trent rand Drew, MD.
== END 2016-12-24 00:32 | disposition home or self-care (01) ==
LOC: ED 19:04
DX: R94.31 Abnormal electrocardiogram [ECG] [EKG] (principal); R53.81 Other malaise; K80.80 Other cholelithiasis without obstruction; R05 Cough; R42 Dizziness and giddiness; I10 Essential (primary) hypertension; Z95.2 Presence of prosthetic heart valve; N94.89 Other specified conditions associated with female genital organs and menstrual cycle
CPT/HCPCS: 36415; 72192; 80053; 81003; 81015; 82550; 83605; 83690; 83735; 84484; 85025; 85610; 85730; 86140; 86850; 86900; 86901; 87040; 87070; 87205; 93005; 96374; 96375; 99283